=== PATIENT | female | born 1990 | race African-American/Black ===

== ENCOUNTER 2025-01-06 00:17 | Emergency (ER) | payer OTHER ==
[~2025-01-06] VITALS: Ht 167.6 cm; Wt 82.0 kg
[2025-01-06 00:29] VITALS: TEMP 36.8; O2SAT 97
[2025-01-06] MEDS: METHOCARBAMOL 500MG TABLET PO ONE (01:45)
[2025-01-06] MEDS: IBUPROFEN 600MG TABLET PO ONE (01:45)
[2025-01-06] MEDS ORDERED: NAPR-1176 MT (04:01)
[2025-01-06] MEDS ORDERED: LIDO-53 TP (04:01)
[2025-01-06 04:34] VITALS: BP 137/94; PULSE 74; RESP 14; O2SAT 99
== END 2025-01-06 04:35 | disposition home or self-care (01) ==
LOC: ER 00:17
DX: M25.512 Pain in left shoulder (principal); M25.532 Pain in left wrist; E11.9 Type 2 diabetes mellitus without complications; E78.00 Pure hypercholesterolemia, unspecified; I10 Essential (primary) hypertension; Z79.1 Long term (current) use of non-steroidal anti-inflammatories (NSAID); V49.9XXA Car occupant (driver) (passenger) injured in unspecified traffic accident, initial encounter; Y93.89 Activity, other specified; Y92.410 Unspecified street and highway as the place of occurrence of the external cause; Y99.8 Other external cause status
CPT/HCPCS: 99284; 82962; 73030; 73130; 29125; A6449